=== PATIENT | male | born 1990 | race Two or more races ===

== ENCOUNTER 2022-12-26 13:38 | Emergency (ER) | payer MEDICAID ==
[~2022-12-26] VITALS: Ht 165.1 cm; Wt 80.0 kg
[2022-12-26 13:43] VITALS: BP 119/78; PULSE 77; RESP 18; TEMP 97.8; O2SAT 96
[2022-12-26] MEDS ORDERED: PRED20TA PO (15:10)
[2022-12-26] MEDS ORDERED: dexamethasone sod phosphate 10mg/ml inj IM STA (15:12)
[2022-12-26] MEDS ORDERED: ketorolac tromethamine 15mg/ml inj. IM ONE (15:15)
== END 2022-12-26 15:37 | disposition home or self-care (01) ==
LOC: ER 13:39
DX: R21 Rash and other nonspecific skin eruption (principal); M25.552 Pain in left hip; Z79.899 Other long term (current) drug therapy
CPT/HCPCS: 99283

== ENCOUNTER 2023-02-09 09:31 | Emergency (ER) | payer MEDICAID, OTHER ==
[~2023-02-09] VITALS: Ht 170.2 cm; Wt 90.0 kg
[2023-02-09 09:47] VITALS: BP 128/85; PULSE 64; RESP 18; TEMP 97.8; O2SAT 98
[2023-02-09 10:22] LABS: BASOPHILS % (AUTO) 0.5 % (0-1); EOSINOPHILS # (AUTO) 0.1 X10'3 (0-0.9); HEMATOCRIT 43.6 % (42.0-52.0); LYMPHOCYTES # (AUTO) 2.3 X10'3 (1.1-4.8); LYMPHOCYTES % (AUTO) 42.9 % (21-51); MEAN CORPUSCULAR HEMOGLOBIN 32.2 PG (27.0-31.0); MEAN CORPUSCULAR HGB CONC 34.5 g/dL (33.0-36.5); MEAN CORPUSCULAR VOLUME 93.2 FL (78-98); MEAN PLATELET VOLUME 6.8 FL (7.4-10.4); MONOCYTES # (AUTO) 0.6 X10'3 (0-0.9); MONOCYTES % (AUTO) 11.4 % (2-12); NEUTROPHILS # (AUTO) 2.3 X10'3 (1.8-7.7); NEUTROPHILS % (AUTO) 44.2 % (42-75); PLATELET COUNT 313 X10'3 (140-440); RED BLOOD COUNT 4.67 X10'6 (4.70-6.10); RED CELL DISTRIBUTION WIDTH 12.9 % (11.5-14.5); WHITE BLOOD COUNT 5.3 X10'3 (4.5-11.0)
== END 2023-02-09 14:30 | disposition left against medical advice (07) ==
LOC: ER 09:35
DX: R10.9 Unspecified abdominal pain (principal); Z53.21 Procedure and treatment not carried out due to patient leaving prior to being seen by health care provider
CPT/HCPCS: 36415; 85025; 99281

== ENCOUNTER 2023-02-11 09:26 | Emergency (ER) | payer OTHER | END 2023-02-11 10:48 | disposition left against medical advice (07) | LOC: ER 09:27 | DX: M54.9 Dorsalgia, unspecified (principal); Z53.21 Procedure and treatment not carried out due to patient leaving prior to being seen by health care provider ==

== ENCOUNTER 2023-06-21 12:38 | Emergency (ER) | payer MEDICAID, OTHER ==
[~2023-06-21] VITALS: Ht 172.7 cm; Wt 100.0 kg
[2023-06-21 12:42] VITALS: BP 192/117; PULSE 78; RESP 18; TEMP 97.8; O2SAT 98
[2023-06-21] MEDS ORDERED: NAPR-56 PO (13:07)
[2023-06-21] MEDS ORDERED: PENI250T2 PO (13:07)
== END 2023-06-21 13:24 | disposition home or self-care (01) ==
LOC: ER 12:38
DX: K08.89 Other specified disorders of teeth and supporting structures (principal); Z72.89 Other problems related to lifestyle; Z79.899 Other long term (current) drug therapy
CPT/HCPCS: 99283

== ENCOUNTER 2024-02-02 14:05 | Emergency (ER) | payer MEDICAID ==
[~2024-02-02] VITALS: Ht 165.1 cm; Wt 79.5 kg
[2024-02-02 14:36] VITALS: BP 111/73; PULSE 69; RESP 16; TEMP 98.2; O2SAT 96
== END 2024-02-02 16:01 | disposition home or self-care (01) ==
LOC: ER 14:06
DX: H00.015 Hordeolum externum left lower eyelid (principal)
CPT/HCPCS: 99281

== ENCOUNTER 2024-09-04 07:21 | Emergency (ER) | payer MEDICAID ==
[~2024-09-04] VITALS: Ht 170.2 cm; Wt 79.4 kg
[2024-09-04 07:28] VITALS: TEMP 97.6
--- NOTE | 2024-09-04 07:44 | Physician Documentation ---
HPI ~ General Chief Complaint: Tooth Problem Stated Complaint: MD REFERRAL Time Seen by MD: 07:43 Primary Medical Doctor: NONE History of Present Illness HPI Comment 34-year-old male presenting with complaints of dental pain. He states that he has wisdom teeth on both sides of his upper jaw. He states that they have been hurting for the past three months. The pain on the right upper jaw is worse than the left. He states that several years ago he had his lower wisdom teeth removed but now that his upper ones are hurting it is very bothersome. He denies any swelling or any other associated symptoms. Patient also has questions about his liver. He states that he was told he has some problems with his liver in the past because he was drinking too much alcohol. Currently he states that he does not drink very much because of this. At this moment he is not endorsing any abdominal pain, nausea, vomiting or any other associated symptoms. Medication Reconciliation Allergies: Coded Allergies: No Known Allergies (Unverified , 09/04/24) Past Medical History Past Medical History: No Pertinent History Past Surgical History: no surgical history Alcohol Use: Occasionally Lives In: Home Physical Exam Vital Signs: Temperature: 97.6, Source: Temporal, Heart Rate: 74, Respiratory Rate: 18, BP: 148/83, Pulse Oximetry: 98, Weight: 79.400 Physical Exam I have reviewed the triage vitals. CONST: Well developed and well nourished. In no acute distress HENT: Head Atraumatic. Bilateral upper wisdom teeth are present on dental exam EYES: Pupils are equal, round and reactive to light. Normal conjunctiva NECK: Normal range of motion. Supple. CARDIO: Normal rate and regular rhythm. No murmurs, rubs, or gallops. S1, S2. PULM/CHEST: No respiratory distress. Lungs clear to auscultation. No wheeze ABD: Soft and nontender. Nondistended. Bowel sounds normal. No guarding. : Exam deferred MSK: No edema. No deformity. NEURO: Alert and oriented to person, place and time. Moving all extremities SKIN: Warm and dry. PSYCH: Normal mood and affect. Good eye contact. Progress Results/Orders Results/Orders Vital Signs 09/04/24 07:28 Temp 97.6 Pulse 74 Resp 18 B/P (MAP) 148/83 Pulse Ox 98 Medical Decision Making Additional Comment 34-year-old male presenting with dental pain secondary to bilateral wisdom teeth. Additionally he states that he has some issues with his liver that he needs evaluated but that currently he is not having any symptoms. The patient needs follow up with dentistry or oral surgery. He initially needs to establish primary care with a primary care physician. The patient was given information and referrals regarding this. He was advised to make an appointment with them as soon as possible. Patient to follow up with Dentistry and primary care in the next 1-2 weeks. Return to the ED with any acutely worsening symptoms. Departure Disposition: HOME / SELF CARE / HOMELESS Impression: Primary Impression: Pain, dental Discharge Instructions: Dental Pain Additional Instructions: 1. Por favor michaela sonia claire con medico primario para lopez ligado. 2. Por favor hacer sonia claire con el cirujano oral para camila dientes. 3. Regrese a la xiomara de emergencias si los sintomas empeoran. Referrals: NO PRIMARY CARE PROVIDER (PCP) Signature Scribe Signature: 1 Attestation: 1 LEILANI ALEJO MD Sep 04, 2024 07:44
[2024-09-04 07:57] VITALS: BP 120/80; PULSE 73; RESP 15; O2SAT 97
== END 2024-09-04 08:28 | disposition home or self-care (01) ==
LOC: ER 07:21
DX: K08.89 Other specified disorders of teeth and supporting structures (principal)
CPT/HCPCS: 99281